=== PATIENT | female | born 1995 | race Caucasian/White ===

== ENCOUNTER 2019-01-14 13:31 | Outpatient (REF) | payer OTHER, SELFPAY ==
[2019-01-14 21:31] LABS: Abs Immature Grans 0.04 k/cumm (0.0-0.09); Absolute Basophil Count 0.02 k/cumm (0.0-0.2); Absolute Eosinophil Count 0.21 k/cumm (0.0-0.7); Absolute Monocyte Count 0.45 k/cumm (0.11-0.7); Absolute Neutrophil Count 6.34 k/cumm (1.2-6.7); Basophils % 0.2; Eosinophils % 2.1; HCT 43.5 % (36.0-46.0); HGB 15.2 g/dL (12.0-15.5); Immature Grans % 0.4; Lymphocytes % 30.5; Mean Corp. HGB Concentration 34.9 g/dL (32.0-36.0); Mean Corpuscular Hemoglobin 30.5 pg (27.0-33.0); Mean Corpuscular Volume 87.3 fL (80-95); Mean Platelet Volume 10.7 fL (8.0-11.0); Monocytes % 4.4; Neutrophils % 62.4; Platelet Count 248 x1000/uL (130-400); RBC 4.98 m/cumm (4.00-5.20); RBC Distribution Width 13.4 % (11.7-14.6); White Blood Cell Count 10.16 k/cumm (4.4-10.8)
== END 2019-01-14 13:51 ==
LOC: NCHCN 13:31
PROVIDERS: Visit Provider Nurse Practitioner Family
DX: N93.9 Abnormal uterine and vaginal bleeding, unspecified (principal)
CPT/HCPCS: 85025

== ENCOUNTER 2019-08-19 17:14 | Outpatient (REF) | payer SELFPAY ==
[2019-08-19 20:37] LABS: Iron 64 ug/dL (50-175); Total Iron Binding Capacity 336 ug/dL (250-450); Transferrin Sat 19 % (15-50)
[2019-08-19 20:39] LABS: HCT 42.9 % (36.0-46.0); HGB 14.7 g/dL (12.0-15.5); Mean Corp. HGB Concentration 34.3 g/dL (32.0-36.0); Mean Corpuscular Hemoglobin 29.9 pg (27.0-33.0); Mean Corpuscular Volume 87.4 fL (80-95); Mean Platelet Volume 10.2 fL (8.0-11.0); Platelet Count 303 x1000/uL (130-400); RBC 4.91 m/cumm (4.00-5.20); RBC Distribution Width 13.5 % (11.7-14.6); White Blood Cell Count 11.21 k/cumm (4.4-10.8)
== END 2019-08-19 17:34 ==
LOC: NCHCN 17:14
PROVIDERS: Visit Provider Nurse Practitioner Family
DX: N92.0 Excessive and frequent menstruation with regular cycle (principal); F32.9 Major depressive disorder, single episode, unspecified; F17.210 Nicotine dependence, cigarettes, uncomplicated
CPT/HCPCS: 85027; 83540; 83550

== ENCOUNTER 2019-09-23 15:41 | Outpatient (REF) | payer BC, SELFPAY ==
[2019-09-23 21:07] LABS: Abs Immature Grans 0.02 k/cumm (0.0-0.09); Absolute Basophil Count 0.04 k/cumm (0.0-0.2); Absolute Eosinophil Count 0.26 k/cumm (0.0-0.7); Absolute Monocyte Count 0.63 k/cumm (0.11-0.7); Absolute Neutrophil Count 6.45 k/cumm (1.2-6.7); Basophils % 0.3; Eosinophils % 2.2; HCT 41.8 % (36.0-46.0); HGB 14.3 g/dL (12.0-15.5); Immature Grans % 0.2; Lymphocytes % 37.3; Mean Corp. HGB Concentration 34.2 g/dL (32.0-36.0); Mean Corpuscular Hemoglobin 30.2 pg (27.0-33.0); Mean Corpuscular Volume 88.2 fL (80-95); Monocytes % 5.3; Neutrophils % 54.7; Platelet Count 279 x1000/uL (130-400); RBC 4.74 m/cumm (4.00-5.20); RBC Distribution Width 13.3 % (11.7-14.6)
== END 2019-09-23 16:01 ==
LOC: NCHCN 15:41
PROVIDERS: Visit Provider Nurse Practitioner Family
DX: D72.829 Elevated white blood cell count, unspecified (principal); F32.9 Major depressive disorder, single episode, unspecified
CPT/HCPCS: 85025

== ENCOUNTER 2020-02-26 12:21 | Outpatient (REF) | payer BC, SELFPAY ==
[2020-02-26 20:45] LABS: Abs Immature Grans 0.07 k/cumm (0.0-0.09); Absolute Basophil Count 0.02 k/cumm (0.0-0.2); Absolute Eosinophil Count 0.22 k/cumm (0.0-0.7); Absolute Lymphocyte Count 4.02 k/cumm (1.2-3.4); Absolute Monocyte Count 0.63 k/cumm (0.11-0.7); Absolute Neutrophil Count 7.07 k/cumm (1.2-6.7); Basophils % 0.2; Eosinophils % 1.8; HCT 46.3 % (36.0-46.0); HGB 15.8 g/dL (12.0-15.5); Immature Grans % 0.6 %; Lymphocytes % 33.4; Mean Corp. HGB Concentration 34.1 g/dL (32.0-36.0); Mean Corpuscular Hemoglobin 29.6 pg (27.0-33.0); Mean Corpuscular Volume 86.7 fL (80-95); Mean Platelet Volume 10.5 fL (8.0-11.0); Monocytes % 5.2; Neutrophils % 58.8; Platelet Count 268 x1000/uL (130-400); RBC 5.34 m/cumm (4.00-5.20); RBC Distribution Width 13.5 % (11.7-14.6); White Blood Cell Count 12.03 k/cumm (4.4-10.8)
== END 2020-02-26 12:41 ==
LOC: NCHCN 12:21
PROVIDERS: PCP Nurse Practitioner Family; Visit Provider Nurse Practitioner Family
DX: D72.829 Elevated white blood cell count, unspecified (principal)
CPT/HCPCS: 85025

== ENCOUNTER 2021-02-25 12:57 | Outpatient (REF) | payer BC, SELFPAY ==
--- NOTE | 2021-02-25 12:30 | PAPFT_PTH ---
PATIENT: CASIMIRO MAZARIEGOS LOC: [facility] U#:[id number] AGE/SX: 25/F ROOM: RE02/25/[address]: Ml Gonzales : 1995 BED: DIS: 02/25/2021 SPEC #: [id number] RECD: 02/26/21 12:51 STATUS: RENATA REOchoa #: [id number] LOVE: 02/25/21 12:[address]: Ml Gonzales DEPT: [facility] Cytology RECD BY: Lizz Flores ENTERED: 02/26/21 12:51 SP TYPE: PAPFT OTHR DR: Deborah Chavez Tissues: 1 - CX/ENDOCX FOR PAP SMEARS Procedures: PAP THIN PREP/[facility] Screening Comments: [id number]
== END 2021-02-25 12:58 | disposition home or self-care (01) ==
LOC: NCHCN 12:57
PROVIDERS: PCP Nurse Practitioner Family; Visit Provider Nurse Practitioner Family
DX: Z00.00 Encounter for general adult medical examination without abnormal findings (principal); Z12.4 Encounter for screening for malignant neoplasm of cervix; Z01.419 Encounter for gynecological examination (general) (routine) without abnormal findings
CPT/HCPCS: 88142